=== PATIENT | male | born 1995 | race Caucasian/White ===

== ENCOUNTER 2023-09-08 22:38 | Emergency (ER) | payer BC, SELFPAY ==
[2023-09-08 22:47] VITALS: BP 145/85; PULSE 100; RESP 20; TEMP 36.7; O2SAT 98; BMI 22.2
== END 2023-09-08 23:20 | disposition left against medical advice (07) ==
DX: Z53.21 Procedure and treatment not carried out due to patient leaving prior to being seen by health care provider (principal)

== ENCOUNTER 2024-03-13 12:28 | Outpatient (CLI) | payer BC, SELFPAY | END 2024-03-13 12:29 | disposition home or self-care (01) | PROVIDERS: Visit Provider Family Medicine | DX: R11.0 Nausea (principal); R19.7 Diarrhea, unspecified | CPT/HCPCS: 80053; 83690 ==

== ENCOUNTER 2024-03-18 13:23 | Emergency (ER) | payer BC, SELFPAY ==
[2024-03-18 13:32] VITALS: BP 120/60; PULSE 67; RESP 16; TEMP 36.9; O2SAT 98
--- NOTE | 2024-03-18 13:55 | ED_ITS ---
HPI - General Adult General Time Seen by Provider: 13:55 Date Seen: 03/18/24 Chief complaint: Nausea/Vomiting Stated complaint: Nausea, vomiting, dizziness Time Seen by Provider: 03/18/24 13:44 Source: patient, family (Patient is here with his dad) and RN notes reviewed Mode of arrival: ambulatory Limitations: no limitations History of Present Illness HPI narrative: José Miguel is a 28-year-old male coming into the ER with ongoing nausea and abdominal pain. Symptoms started after March 03. He ate out with his mom, had some crab did of, cheese cake. Symptoms started the next day. He actually left work because he was having nausea and abdominal pain. He has had a couple episodes of diarrhea through this. There was a time where he had some improvement in symptoms and then rebounded. I have reviewed both of his urgent care notes from March 11 as well as March 13. He has noted no fevers. He did note some darkening of his stools when taking the omeprazole. He stop the omeprazole yesterday thinking that it was worsening his abdominal symptoms. He has noted no blood in the stools. There is no family history of inflammatory bowel, dad does have more irritable bowel symptoms. He has felt dizzy with his symptoms. He has been intermittently eating and drinking fine. He thought he would be going back to work today but when he got up this morning he had significant nausea and dizziness again. He does not use any marijuana or THC products, works for [employer]. He had labs at urgent care on March 13, his hemoglobin was 12 and MCV was low at 77. He had a normal lipase and comprehensive metabolic panel, negative COVID. Related Data Home Medications ?Medication ?Instructions ?Recorded ?Confirmed hydrocortisone 2.5 % topical cream applic topical 03/11/24 03/16/24 tacrolimus 0.1 % topical ointment topical DAILY 03/11/24 03/16/24 Previous Rx's ?Medication ?Instructions ?Recorded omeprazole 20 mg capsule,delayed 20 mg PO QDAY #30 caps 03/13/24 release ondansetron 4 mg disintegrating 4 mg PO Q6-8H PRN nausea and 03/13/24 tablet vomiting #10 tabs lansoprazole 30 mg capsule,delayed 30 mg PO DAILY #30 caps 03/18/24 release (Prevacid) ondansetron 4 mg disintegrating 4 mg PO Q6H PRN nausea and 03/18/24 tablet vomiting #20 tabs Allergies Allergy/AdvReac Type Severity Reaction Status Date / Time No Known Drug Allergies Allergy Verified 03/18/24 14:31 Review of Systems Status of ROS: Reports: 6 or more systems reviewed and unremarkable except as noted in History and below [facility] Medical History Microcytic anemia ?D50.9 - Iron deficiency anemia, unspecified (ICD-10) Diarrhea ?R19.7 - Diarrhea, unspecified (ICD-10) Nausea ?R11.0 - Nausea (ICD-10) No significant past medical history Fracture of proximal end of right humerus (05/27/10) ?S42.201A - Unspecified fracture of upper end of right humerus, initial encounter for closed fracture (ICD-10) Family History Father Asthma Other Coronary artery disease Social History Narrative: does not drink alcohol does not ilicit drugs nonsmoker Smoking Status: Never smoker Second hand tobacco smoke exposure: No How often do you have a drink containing alcohol: never How often do you have six or more drinks on one occasion: Never AUDIT-C Alcohol total score: 0 Non-prescribed substance use: denies use Exam Const: Vital Signs, click to edit/add: Vital Signs - 24 hr 03/18/24 13:32 Temperature 98.5 F Pulse Rate [Radial ] 67 Respiratory Rate 16 Blood Pressure [Ri ght Upper Arm] 120/60 Pulse Oximetry 98 Oxygen Delivery Me thod Room Air José Miguel is a 28-year-old male seen in exam room 6. He is alert, interactive, no apparent distress. He is of slender frame. Pupils are equal round, conjugate gaze, sclera clear. Able to speak in complete sentences. Neck slender, no adenopathy or masses. He is able to sit up without difficulty, lungs are clear, good air entry, no wheezing or crackles. No visible abnormalities on inspection of his back. CV regular rate and rhythm, no murmur, normal S1-S2, no S3-S4. Abdomen is flat, thin, nontender, no organomegaly, normal bowel sounds. Documenting provider has reviewed patient's vital signs: yes Course Course ED Course: This 28-year-old male is presenting with over 2 week history of abdominal pain and nausea. He is unlikely to have ?food poisoning? as we discussed. He really has had minimal diarrhea through this. I do think upper abdominal pathology which could include gastritis, ulcer disease, either of these entities complicated by H pylori, small bowel pathology which could be inflammatory bowel disease or celiac disease. Will proceed with repeat labs, give him a L of IV f luids, 4 mg IV Zofran. We will proceed with CT imaging of his abdomen pelvis. Have discussed with him that he may ultimately need to have endoscopy done but not likely needed emergently. Reevaluation(s) Time of Reevaluation #1: 16:02 Reevaluation #1: Have reviewed the CT report and provided them a copy. There is nothing on the CT indicating acute intra-abdominal abnormality. Inflammatory markers are normal, making inflammatory bowel disease much less likely; coupled with normal bowel on CT, I doubt that this is any representation of initial inflammatory bowel disorder. Do still think he should follow up in clinic, have H pylori testing and consideration of celiac testing done. I have reviewed with them that he has iron studies that are pending, if he is confirmed iron deficiency anemia, would at least start with an EGD, may need to consider colonoscopy screening as well. Patient's grandparents tolerated Prevacid and both had significant side effects with omeprazole. José Miguel notes that he just was miserable and had most of the side effects on omeprazole. Will send in Prevacid instead, do think we should do this. Time of Reevaluation #2: 16:17 Reevaluation #2: Iron panel is back in he indeed is iron deficient. Did review this with them. They follow in [facility] within our system. I will order EGD for them here. Given his age, will not order colonoscopy right away but may need to be considered if this does not reveal the source. I will see if we have blood work to do a lab add on for celiac panel but they will need to get the results from his primary. Vital Signs Vital signs: Initial Vital Signs Temperature 98.5 F 03/18/24 13:32 Temperature Source Temporal Artery Scan 03/18/24 13:32 Pulse Rate 67 03/18/24 13:32 Pulse Rhythm Regular 03/18/24 13:32 Respiratory Rate 16 03/18/24 13:32 Blood Pressure 120/60 03/18/24 13:32 Blood Pressure Mean 80 03/18/24 13:32 Pulse Oximetry 98 03/18/24 13:32 Oxygen Delivery Method Room Air 03/18/24 13:32 Vital Signs Temperature 98.5 F 03/18/24 13:32 Pulse Rate 67 03/18/24 13:32 Respiratory Rate 16 03/18/24 13:32 Blood Pressure 120/60 03/18/24 13:32 Pulse Oximetry 98 03/18/24 13:32 Oxygen Delivery Method Room Air 03/18/24 13:32 Temperature 98.5 F 03/18/24 13:32 Pulse Rate 67 03/18/24 13:32 Respiratory Rate 16 03/18/24 13:32 Blood Pressure 120/60 03/18/24 13:32 Pulse Oximetry 98 03/18/24 13:32 Oxygen Delivery Method Room Air 03/18/24 13:32 Medications Administered Medications: Discontinued Medications Generic Name Dose Route Start Last Admin Trade Name Freq PRN Reason Stop Dose Admin Sodium Chloride 1,000 mls @ 1,000 mls/hr 03/18/24 14:09 03/18/24 15:25 0.9 % Sodium Chloride 1000 Ml IV 03/18/24 15:08 Infused .Q1H LUIS ANTONIO Infusion Sodium Chloride 1,000 mls @ 1,000 mls/hr 03/18/24 15:11 03/18/24 15:30 0.9 % Sodium Chloride 1000 Ml IV 03/18/24 16:10 1,000 mls/hr .Q1H LUIS ANTONIO Administration Medical Decision Making Lab Data Lab results reviewed: Yes I reviewed the patient's lab results Labs: Lab Results 03/18/24 03/18/24 Range/Units 14:19 15:10 WBC 4.68 (4.50-11.00) K/uL RBC 5.09 (4.30-5.90) m/uL Hgb 12.0 L (13.5-17.5) gm/dL Hct 38.7 (37.0-53.0) % MCV 76 L (80-100) fL MCH 24 L (26-34) pg MCHC 31 L (32-36) gm/dL RDW Coeff of Thomas 14.2 (11.5-15.5) % Plt Count 225 (140-440) K/uL Neut % (Auto) 51.3 (42.0-72.0) % Lymph % (Auto) 32.7 (20-44) % [place] % (Auto) 12.8 H (0.0-11.0) % Eos % (Auto) 2.8 (0.0-7.0) % Baso % (Auto) 0.4 (0.0-3.0) % Neut # (Auto) 2.40 (1.7-7.0) K/uL Lymph # (Auto) 1.53 (0.90-2.90) K/uL Oxford # (Auto) 0.60 (0.00-0.90) K/UL Eos # (Auto) 0.13 (0.00-0.50) K/uL Baso # (Auto) 0.02 (0.00-0.30) K/uL Abs Immat Gran (auto) 0.00 (0.00-0.30) K/uL Imm/Tot Granulo (auto) 0.0 % ESR 2 (2-15) mm/hr Absolute Retic 0.05 (0.03-0.08) # Percent Retic 0.9 (0.5-2.0) % Immature Retic Fraction 19.1 H (2.3-13.4) % Retic Hgb Equivalent 29.9 (29.0-35.0) pg Sodium 139 (135-149) mmol/L Potassium 4.0 (3.6-5.1) mmol/L Chloride 104 (96-114) mmol/L Carbon Dioxide 26 (20-32) mmol/L Anion Gap 9 (7-15) mEq/L BUN 13 (5-24) mg/dL Creatinine 1.0 (0.5-1.5) mg/dL Estimated GFR 106 ml/min Glucose 91 (60-115) mg/dL Lactate 0.7 (0.5-1.9) mmol/L Calcium 9.7 (8.4-10.6) mg/dL Iron 40 L (49-181) ug/dL TIBC 401 (261-462) ug/dL % Saturation 10 L (20-50) % Total Bilirubin 1.9 H (0.1-1.5) mg/dL AST 18 (12-35) U/L ALT 12 (4-50) U/L Alkaline Phosphatase 42 (40-150) U/L C-Reactive Protein < 0.5 L (0.5-1.0) mg/dL Total Protein 7.1 (6.0-8.3) g/dL Albumin 4.8 (3.3-5.0) g/dL Lipase 103 (23-300) U/L Lab Acknowledgement Test Added Imaging Data CT scan - abdomen: Attestation: I have reviewed the pertinent imaging results. Radiologist's impression: Patient: JOSÉ MIGUEL HARDING Facility:?[facility] Patient ID:?[id number] Site Patient ID:?[id number]. Site :?[id number] Study:?CT-Abdomen/Pelvis W/ 77CC ISOVUE 370-03/18/2024 2:37:35 PM Ordering Physician:Michelle Vasquez Final Report: INDICATION: Lower abdominal pain TECHNIQUE: Axial images were obtained from the diaphragm to the pubic symphysis. Reformats were obtained in the coronal and sagittal plane. IV Contrast: 77 cc Isovue 370 Oral Contrast: None COMPARISON: None. FINDINGS: Lower chest: Unremarkable. Liver: Unremarkable. Normal in size and attenuation. No masses. Gallbladder and bile ducts: Gallbladder is mildly contracted without focal in flammation. Normal diameter common duct. Spleen: Unremarkable. Normal in size without mass. Pancreas: Unremarkable. No mass or inflammation. Adrenal glands: Unremarkable. No nodules. Kidneys: Unremarkable. No masses, stones, or hydronephrosis. Vasculature: Unremarkable. GI tract: The stomach is unremarkable. No dilated loops of large or small intestine. Unremarkable appendix. Pelvis: Unremarkable. Bones: Unremarkable for age. IMPRESSION: Unremarkable abdomen and pelvis CT. No findings to explain the patient`s pain. Please note that all CT scans at this facility use dose modulation, iterative reconstruction, and/or weight-based dosing when appropriate to reduce radiation dose to as low as reasonably achievable. Dictated by Avni Giles MD @ 03/18/2024 3:10:44 PM (Electronic Signature) Discharge Plan Discharge Clinical Impression: Nausea Abdominal pain Qualifiers: Abdominal location: unspecified location Qualified Code(s): R10.9 - Unspecified abdominal pain Iron deficiency anemia Qualifiers: Iron deficiency anemia type: unspecified iron deficiency Qualified Code(s): D50.9 - Iron deficiency anemia, unspecified Patient Disposition: Home, Self-Care Condition: Stable Instructions: Acute Nausea and Vomiting (ED), Abdominal Pain (ED), Iron Rich Diet (ED), Anemia (ED) Additional Instructions: Need to schedule a follow-up with your primary care provider as soon as possible, preferably early next week. Recommend further H pylori, get celiac results. Do recommend an EGD at least be done. Try the Prevacid, stop the omeprazole. Refill for Zofran is placed. Do think you need to continue with brat diet her for the next couple days, if the Prevacid is helping in your abdominal symptoms are better, do think that you can proceed with advancing your diet back to a normal diet. You should take iron supplements. I have provided a note to be out of work for today and tomorrow. The endoscopy clinic should contact you early next week to get you on the schedule for an EGD. This may take home a week or 2 to get on the schedule. Activity Level: Activity as Tolerated Prescriptions: New lansoprazole [Prevacid] 30 mg capsule,delayed release(DR/EC) 30 mg PO DAILY Qty: 30 0RF ondansetron 4 mg tablet,disintegrating 4 mg PO Q6H PRN (Reason: nausea and vomiting) Qty: 20 0RF No Action hydrocortisone 2.5 % cream topical tacrolimus 0.1 % ointment topical DAILY ondansetron 4 mg tablet,disintegrating 4 mg PO Q6-8H PRN (Reason: nausea and vomiting) Qty: 10 1RF omeprazole 20 mg capsule,delayed release(DR/EC) 20 mg PO QDAY Qty: 30 3RF Follow Up/Referrals: Provider,Not a Local [Primary Care Provider] - Stand Alone Forms: [address] Info Instructions
--- NOTE | 2024-03-18 14:08 | CRLHL7_ITS ---
For Patients: As a result of the Century Cures Act, medical imaging exams and procedure reports are released immediately into your electronic medical record. You may view this report before your referring provider. If you have questions, please contact your health care provider. INDICATION: Lower abdominal pain TECHNIQUE: Axial images were obtained from the diaphragm to the pubic symphysis. Reformats were obtained in the coronal and sagittal plane. IV Contrast: 77 cc Isovue 370 Oral Contrast: None COMPARISON: None. FINDINGS: Lower chest: Unremarkable. Liver: Unremarkable. Normal in size and attenuation. No masses. Gallbladder and bile ducts: Gallbladder is mildly contracted without focal inflammation. Normal diameter common duct. Spleen: Unremarkable. Normal in size without mass. Pancreas: Unremarkable. No mass or inflammation. Adrenal glands: Unremarkable. No nodules. Kidneys: Unremarkable. No masses, stones, or hydronephrosis. Vasculature: Unremarkable. GI tract: The stomach is unremarkable. No dilated loops of large or small intestine. Unremarkable appendix. Pelvis: Unremarkable. Bones: Unremarkable for age. IMPRESSION: Unremarkable abdomen and pelvis CT. No findings to explain the patient`s pain. Please note that all CT scans at this facility use dose modulation, iterative reconstruction, and/or weight-based dosing when appropriate to reduce radiation dose to as low as reasonably achievable. Dictated by Avni Giles MD @ 03/18/2024 3:10:44 PM (Electronically Signed)
[2024-03-18 14:30] LABS: Lactate* 0.7 mmol/L (0.5-1.9)
[2024-03-18 14:32] LABS: Basophils Absolute Auto 0.02 K/uL (0.00-0.30); Basophils Percent Auto 0.4 % (0.0-3.0); Eosinophils Absolute Auto 0.13 K/uL (0.00-0.50); Eosinophils Percent Auto 2.8 % (0.0-7.0); Hematocrit 38.7 % (37.0-53.0); Lymphocytes Absolute Auto 1.53 K/uL (0.90-2.90); Lymphocytes Percent Auto 32.7 % (20-44); Mean Corpuscular HGB Conc 31 gm/dL (32-36); Mean Corpuscular Hemoglobin 24 pg (26-34); Mean Corpuscular Volume 76 fL (80-100); Monocytes Percent Auto 12.8 % (0.0-11.0); Neutrophils Percent Auto 51.3 % (42.0-72.0); Platelet Count* 225 K/uL (140-440); RDW Coefficient of Variation % 14.2 % (11.5-15.5); Red Blood Count 5.09 m/uL (4.30-5.90); White Blood Count* 4.68 K/uL (4.50-11.00)
[2024-03-18 14:36] LABS: Slide Review Reflex No
[2024-03-18 14:48] LABS: Albumin* 4.8 g/dL (3.3-5.0); Chloride* 104 mmol/L (96-114); Sodium* 139 mmol/L (135-149)
[2024-03-18 14:51] LABS: Alanine Aminotransferase* 12 U/L (4-50); Alkaline Phosphatase* 42 U/L (40-150); Anion Gap 9 mEq/L (7-15); Aspartate Amino Transferase* 18 U/L (12-35); Bilirubin Total* 1.9 mg/dL (0.1-1.5); Blood Urea Nitrogen* 13 mg/dL (5-24); Carbon Dioxide* 26 mmol/L (20-32); Estimated Glomerular Filt Rate 106 ml/min; Glucose* 91 mg/dL (60-115); Total Protein* 7.1 g/dL (6.0-8.3)
[2024-03-18 14:52] LABS: Calcium* 9.7 mg/dL (8.4-10.6); Lipase* 103 U/L (23-300)
[2024-03-18] MEDS: 0.9 % SODIUM CHLORIDE 1000 ml 1,000 ML IV ×2 (14:55→15:30)
[2024-03-18 14:56] LABS: C Reactive Protein* < 0.5 mg/dL (0.5-1.0)
[2024-03-18 15:34] LABS: Erythrocyte SedimentationRate* 2 mm/hr (2-15)
[2024-03-18 15:40] LABS: Immature Reticulocyte Fraction 19.1 % (2.3-13.4); Reticulocyte Hemoglobin Equivi 29.9 pg (29.0-35.0); Reticulocyte Percent 0.9 % (0.5-2.0); Reticulocytes Absolute 0.05 # (0.03-0.08)
[2024-03-18 15:48] LABS: Iron* 40 ug/dL (49-181)
[2024-03-18 15:57] LABS: Percent Iron Saturation 10 % (20-50); Total Iron Binding Capacity 401 ug/dL (261-462)
[2024-03-18 16:26] LABS: Ferritin* 7.7 ng/mL (17.9-464.0)
[2024-03-20 22:44] LABS: BILL_GLIADPEPA Y; Gliadin Peptide Ab, IgA <0.72 FLU (0.00-4.99); Tissue Transglutaminase Ab IgA <1.02 FLU (0.00-4.99)
[2024-03-21 16:05] LABS: BILL_GLIADPEPG Y; BILL_TtGG Y; Gliadin Peptide Ab, IgG 1.61 FLU (0.00-4.99); Tissue Transglutaminase Ab IgG <0.82 FLU (0.00-4.99)
== END 2024-03-18 16:45 | disposition home or self-care (01) ==
PROVIDERS: Emergency Provider Family Medicine
DX: R11.0 Nausea (principal); R10.9 Unspecified abdominal pain; D50.9 Iron deficiency anemia, unspecified
CPT/HCPCS: 36415; 74177; 80053; 82728; 83540; 83550; 83605; 83690; 85025; 85045; 85651; 86140; 86231; 86258; 86364; 99284; 99285; J7030; Q9967

== ENCOUNTER 2024-04-28 10:59 | Outpatient (CLI) | payer BC, SELFPAY ==
--- NOTE | 2024-04-28 11:19 | W.ANESCHARGE ---
Anesthesia Charges Start Date/Time Anesthesia Start Date: 04/28/24 Anesthesia Start Time: 11:45 Stop Date/Time Anesthesia Stop Date: 04/28/24 Anesthesia Stop Time: 12:05
--- NOTE | 2024-04-28 12:09 | W.ANESCHARGE ---
Anesthesia Charges Start Date/Time Anesthesia Start Date: 04/28/24 Anesthesia Start Time: 11:45 Stop Date/Time Anesthesia Stop Date: 04/28/24 Anesthesia Stop Time: 12:05
== END 2024-04-28 11:00 | disposition home or self-care (01) ==
LOC: OP CLINIC 10:59
PROVIDERS: Visit Provider Surgery
DX: R13.10 Dysphagia, unspecified (principal); K22.2 Esophageal obstruction
CPT/HCPCS: 00731; 43200; J2704; J3490

== ENCOUNTER 2024-06-02 07:54 | Outpatient (CLI) | payer BC, SELFPAY ==
--- NOTE | 2024-06-02 08:15 | CRLHL7_ITS ---
For Patients: As a result of the Century Cures Act, medical imaging exams and procedure reports are released immediately into your electronic medical record. You may view this report before your referring provider. If you have questions, please contact your health care provider. Technique: Double-contrast upper GI performed after the uneventful administration of effervescent crystals and thick barium followed by thin barium. Fluoroscopy time 2 minutes 47 seconds. Indication: Dysphagia, FAILED ENDOSCOPY. POSSIBLE ULCER Comparison: CT 03/18/2024 Findings: Swallowing mechanism: Normal. Esophageal motility: Normal. Gastroesophageal reflux: None. Hernia: None. Esophagus, stomach and duodenal bulb mucosa: Normal mucosa. No stricture or mass. Impression: Normal double-contrast upper GI. No evidence of ulcer. Dictated by Ish Robledo MD @ 06/06/2024 12:43:34 PM (Electronically Signed)
== END 2024-06-02 07:55 | disposition home or self-care (01) ==
LOC: RAD 07:54
PROVIDERS: Visit Provider Surgery
DX: R13.10 Dysphagia, unspecified (principal)
CPT/HCPCS: 74240; 74246

== ENCOUNTER 2024-06-05 14:35 | Emergency (ER) | payer BC, SELFPAY ==
[2024-06-05 14:49] VITALS: BP 118/73; PULSE 71; RESP 16; TEMP 37.3; O2SAT 99; BMI 20.9
[2024-06-05 16:38] LABS: Basophils Absolute Auto 0.03 K/uL (0.00-0.30); Basophils Percent Auto 0.5 % (0.0-3.0); Eosinophils Absolute Auto 0.25 K/uL (0.00-0.50); Eosinophils Percent Auto 4.5 % (0.0-7.0); Hematocrit 38.9 % (37.0-53.0); Hemoglobin* 12.5 gm/dL (13.5-17.5); Lymphocytes Absolute Auto 1.62 K/uL (0.90-2.90); Lymphocytes Percent Auto 29.2 % (20-44); Mean Corpuscular HGB Conc 32 gm/dL (32-36); Mean Corpuscular Hemoglobin 25 pg (26-34); Mean Corpuscular Volume 78 fL (80-100); Monocytes Percent Auto 10.3 % (0.0-11.0); Neutrophils Absolute Auto 3.08 K/uL (1.7-7.0); Neutrophils Percent Auto 55.5 % (42.0-72.0); Platelet Count* 208 K/uL (140-440); RDW Coefficient of Variation % 14.8 % (11.5-15.5); Red Blood Count 5.01 m/uL (4.30-5.90); White Blood Count* 5.55 K/uL (4.50-11.00)
[2024-06-05 16:41] LABS: Slide Review Reflex No
--- NOTE | 2024-06-05 16:43 | ED.ABDPAIN ---
HPI - Abdominal Pain General Date Seen: 06/05/24 Chief Complaint: Abdominal Pain Stated Complaint: Upper abdominal pain Time Seen by Provider: 06/05/24 16:03 Source: patient Mode of arrival: ambulatory Limitations: no limitations History of Present Illness HPI narrative: Patient is a 28-year-old gentleman, presents here with an episode of food getting caught in his throat, he was eating a pizza, which she has eaten before, felt to get lodged in his throat he is able to drink some fluid, but then threw it all up, and now fluid is able to go down. Was having a little bit of abdominal pain but that has subsequently resolved, he has absolutely no pain a currently, and is drinking fluids well. Denies any blood within his vomitus or any coffee-grounds, they say he may have an ulcer, as his hemoglobin was low. He is not having any bowel movements with either dark bowel movements, or blood in his bowel movements. He just underwent an upper GI follow-through and has not had the results of this given to him yet. They did try to do endoscopy in April, but were unable to complete this, as he had constriction, which they thought was benign. He has not take any NSAIDs, and does not use alcohol. He is on Prevacid which he said works really well and he has not really had any episodes of pain MD elicited complaint: abdominal pain Pertinent past history: none Related Data Home Medications ?Medication ?Instructions ?Recorded ?Confirmed hydrocortisone 2.5 % topical cream applic topical 03/11/24 03/30/24 tacrolimus 0.1 % topical ointment topical DAILY 03/11/24 03/30/24 Previous Rx's ?Medication ?Instructions ?Recorded ondansetron 4 mg disintegrating 4 mg PO Q6-8H PRN nausea and 03/13/24 tablet vomiting #10 tabs lansoprazole 30 mg capsule,delayed 30 mg PO DAILY #30 caps 03/18/24 release (Prevacid) Allergies Allergy/AdvReac Type Severity Reaction Status Date / Time No Known Drug Allergies Allergy Verified 03/30/24 14:17 Review of Systems Status of ROS Reports: 10 or more systems reviewed and unremarkable except as noted in History and below [facility] Medical History Avulsion fracture of metatarsal bone of right foot ?S92.301A - Fracture of unspecified metatarsal bone(s), right foot, initial encounter for closed fracture (ICD-10) Nondisplaced fracture of fifth metatarsal bone ?S92.356A - Nondisplaced fracture of fifth metatarsal bone, unspecified foot, initial encounter for closed fracture (ICD-10) Microcytic anemia ?D50.9 - Iron deficiency anemia, unspecified (ICD-10) Diarrhea ?R19.7 - Diarrhea, unspecified (ICD-10) Nausea ?R11.0 - Nausea (ICD-10) No significant past medical history Fracture of proximal end of right humerus (05/27/10) ?S42.201A - Unspecified fracture of upper end of right humerus, initial encounter for closed fracture (ICD-10) Surgical History No history of previous surgery Family History Father Asthma Paternal Grandfather History of heart artery stent, Onset Age: 75 Maternal Grandmother Diabetes Social History Narrative: Single, works as [employer] , [employer], lives with father no kids Exercises 3 times a week running and weightlifting Nonsmoker lifetime Rare alcohol use No drug use What is your current living situation?: I presently have a place to live Problems where you live: no known problems In the past 12 months, utilities in danger of being shut off: no In past 12 months, lack of transportation kept you from medical appts, meetings, work, or getting things needed for daily living: no In the past 12 mos, have been you worried that your food would run out before you had money to buy more?: never true In the past 12 mos, the food you bought just didn't last and you didn't have money to buy more?: never true Smoking Status: Never smoker Second hand tobacco smoke exposure: No How often do you have a drink containing alcohol: never How often do you have six or more drinks on one occasion: Never AUDIT-C Alcohol total score: 0 Non-prescribed substance use: denies use How often does anyone, including family, friends and others, physically hurt you: never How often does anyone, including family, friends and others, insult or talk down to you: never How often does anyone, including family, friends and others, threaten you with harm: never How often does anyone, including family, friends and others, scream or curse at you: never Little interest or pleasure in doing things: not at all Feeling down, depressed, or hopeless: not at all Exam Narrative: Exam Narrative: On examination he is pleasant alert he is in no distress, he is a bit pale but this may be is normal call color, conjunctivae well perfused oropharynx is normal neck is supple, chest is clear bilaterally no wheezing crackles noted heart sounds no clicks murmurs or gallops abdomen is scaphoid there is no guarding, no tenderness normal bowel sound no tenderness anywhere on palpation, skin reveals no petechiae rashes. Const: Vital Signs, click to edit/add: Vital Signs - 24 hr 06/05/24 14:49 Temperature 99.1 F Pulse Rate [Right Pulse Oximeter] 71 Respiratory Rate 16 Blood Pressure [Ri ght Upper Arm] 118/73 Pulse Oximetry 99 Oxygen Delivery Me thod Room Air Course Vital Signs Vital signs: Initial Vital Signs Temperature 99.1 F 06/05/24 14:49 Temperature Source Temporal Artery Scan 06/05/24 14:49 Pulse Rate 71 06/05/24 14:49 Pulse Rhythm Regular 06/05/24 14:49 Pulse Strength 3+ Normal 06/05/24 14:49 Respiratory Rate 16 06/05/24 14:49 Blood Pressure 118/73 06/05/24 14:49 Blood Pressure Mean 88 06/05/24 14:49 Blood Pressure Position Sitting 06/05/24 14:49 Pulse Oximetry 99 06/05/24 14:49 Oxygen Delivery Method Room Air 06/05/24 14:49 Vital Signs Temperature 99.1 F 06/05/24 14:49 Pulse Rate 71 06/05/24 14:49 Respiratory Rate 16 06/05/24 14:49 Blood Pressure 118/73 06/05/24 14:49 Pulse Oximetry 99 06/05/24 14:49 Oxygen Delivery Method Room Air 06/05/24 14:49 Temperature 99.1 F 06/05/24 14:49 Pulse Rate 71 06/05/24 14:49 Respiratory Rate 16 06/05/24 14:49 Blood Pressure 118/73 06/05/24 14:49 Pulse Oximetry 99 06/05/24 14:49 Oxygen Delivery Method Room Air 06/05/24 14:49 MDM - Abdominal Pain MDM Narrative Medical decision making narrative: I discussed with him, clearly he has no pain currently so I really do not think he has an ulcer. Released and also that is active, may be in the healing phase I do think that we could just do a hemoglobin here and see where he is at. He will get the results from his physician from the barium swallow, he likely will need to see GI, he may have chronic reflux, which is called this causes a stricture. No evidence of acute or chronic GI bleeding here today. In the nontoxic stable gentleman I discussed with him that this is excellent news, recommend full liquid diet, follow-up based on the results of your test, continue with your medication Medical Records Attestation: I reviewed the patient's medical records. Lab Data Attestation: I reviewed the patient's lab results. Lab results narrative: Hemoglobin increase 0.5 from recent 12. Still microcytic indices Labs: Lab Results 06/05/24 Range/Units 16:30 WBC 5.55 (4.50-11.00) K/uL RBC 5.01 (4.30-5.90) m/uL Hgb 12.5 L (13.5-17.5) gm/dL Hct 38.9 (37.0-53.0) % MCV 78 L (80-100) fL MCH 25 L (26-34) pg MCHC 32 (32-36) gm/dL RDW Coeff of Thomas 14.8 (11.5-15.5) % Plt Count 208 (140-440) K/uL Neut % (Auto) 55.5 (42.0-72.0) % Lymph % (Auto) 29.2 (20-44) % [place] % (Auto) 10.3 (0.0-11.0) % Eos % (Auto) 4.5 (0.0-7.0) % Baso % (Auto) 0.5 (0.0-3.0) % Neut # (Auto) 3.08 (1.7-7.0) K/uL Lymph # (Auto) 1.62 (0.90-2.90) K/uL [place] # (Auto) 0.60 (0.00-0.90) K/UL Eos # (Auto) 0.25 (0.00-0.50) K/uL Baso # (Auto) 0.03 (0.00-0.30) K/uL Abs Immat Gran (auto) 0.00 (0.00-0.30) K/uL Imm/Tot Granulo (auto) 0.0 % Discharge Plan Discharge Clinical Impression: Food sticks on swallowing, Microcytic anemia, Abdominal pain, History of esophageal stricture Patient Disposition: Home, Self-Care Condition: Stable Instructions: Abdominal Pain (ED), Full Liquid Diet (DC) Additional Instructions: Your hemoglobin is increased by 0.5, which is excellent, I do not see any evidence of bleeding, I do think you had an episode where the food got stuck, I would recommend a full liquid diet at this point. It least until you get the follow-up with your recent test that you had. Return here if the food gets stuck, which is should know if your on the liquid diet. Continue to take your Prevacid Prescriptions: No Action hydrocortisone 2.5 % cream topical tacrolimus 0.1 % ointment topical DAILY ondansetron 4 mg tablet,disintegrating 4 mg PO Q6-8H PRN (Reason: nausea and vomiting) Qty: 10 1RF lansoprazole [Prevacid] 30 mg capsule,delayed release(DR/EC) 30 mg PO DAILY Qty: 30 0RF Follow Up/Referrals: Provider,Not a Local [Primary Care Provider] - Stand Alone Forms: [employer] [facility] Info Instructions
== END 2024-06-05 17:09 | disposition home or self-care (01) ==
PROVIDERS: Emergency Provider Family Medicine
DX: R13.10 Dysphagia, unspecified (principal); D50.9 Iron deficiency anemia, unspecified; R10.9 Unspecified abdominal pain
CPT/HCPCS: 36415; 85025; 99283; 99284

== ENCOUNTER 2024-11-16 12:31 | Emergency (ER) | payer BC, SELFPAY ==
--- OUTSIDE RECORDS SUMMARY | 2024-11-16 12:33 | XMS_ITS | Clinical Summary ---
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 PCP - General 12/25/14
[2024-11-16 13:15] VITALS: BP 119/75; PULSE 72; RESP 16; TEMP 36.6; O2SAT 97; BMI 19.5
--- NOTE | 2024-11-16 14:00 | ED_ITS ---
HPI - General Adult General Chief complaint: Abdominal Pain Stated complaint: Abdominal pain Time Seen by Provider: 11/16/24 12:34 History of Present Illness HPI narrative: 29-year-old male who has had chronic abdominal pain. He has had esophageal dilatation he has had EGD twice within the last couple of months. He has had a CT scan within a year that was unremarkable of his abdomen. He was diagnosed at 1 time with eosinophilic esophagitis but again his last EGD look fairly clear biopsies were clear. He is on Prevacid 30 mg twice a day. He has follow-up with his GI doctor. He has had laboratory studies done. He has had no new complaint of pain but intermittently he will get pain primarily in the morning. No other specific complaints. He would does report that he is well lost some weight. Related Data Home Medications ?Medication ?Instructions ?Recorded ?Confirmed tacrolimus 0.1 % topical ointment topical DAILY 03/11/24 10/17/24 fluoxetine 20 mg capsule 20 mg PO QAM 11/16/24 11/16/24 hydroxyzine HCl 10 mg tablet 10 - 20 mg PO PRN panic attack 11/16/24 Previous Rx's ?Medication ?Instructions ?Recorded ondansetron 4 mg disintegrating 4 mg PO Q6-8H PRN nausea and 03/13/24 tablet vomiting #10 tabs lansoprazole 30 mg capsule,delayed 30 mg PO DAILY #30 caps 03/18/24 release (Prevacid) Allergies Allergy/AdvReac Type Severity Reaction Status Date / Time No Known Drug Allergies Allergy Verified 11/16/24 13:14 Review of Systems Status of ROS: Reports: 6 or more systems reviewed and unremarkable except as noted in History and below Narrative: Patient does struggle with anxiety depression, has started Prozac within the last week and think that might be helping a little. [facility] Medical History Avulsion fracture of metatarsal bone of right foot ?S92.301A - Fracture of unspecified metatarsal bone(s), right foot, initial encounter for closed fracture (ICD-10) Nondisplaced fracture of fifth metatarsal bone ?S92.356A - Nondisplaced fracture of fifth metatarsal bone, unspecified foot, initial encounter for closed fracture (ICD-10) Microcytic anemia ?D50.9 - Iron deficiency anemia, unspecified (ICD-10) Fracture of proximal end of right humerus (05/27/10) ?S42.201A - Unspecified fracture of upper end of right humerus, initial encounter for closed fracture (ICD-10) Surgical History History of esophagogastroduodenoscopy (EGD) ?Z98.890 - Other specified postprocedural states (ICD-10) Family History Father Asthma Paternal Grandfather History of heart artery stent, Onset Age: 75 Maternal Grandmother Diabetes Social History Narrative: Single, works as [employer] , [employer], lives with father no kids Exercises 3 times a week running and weightlifting Nonsmoker lifetime Rare alcohol use No drug use What is your current living situation?: I presently have a place to live Problems where you live: no known problems In the past 12 months, utilities in danger of being shut off: no In past 12 months, lack of transportation kept you from medical appts, meetings, work, or getting things needed for daily living: no In the past 12 mos, have been you worried that your food would run out before you had money to buy more?: never true In the past 12 mos, the food you bought just didn't last and you didn't have money to buy more?: never true Smoking Status: Never smoker Second hand tobacco smoke exposure: No How often do you have a drink containing alcohol: never How often do you have six or more drinks on one occasion: Never AUDIT-C Alcohol total score: 0 Non-prescribed substance use: denies use How often does anyone, including family, friends and others, physically hurt you : never How often does anyone, including family, friends and others, insult or talk down to you: never How often does anyone, including family, friends and others, threaten you with harm: never How often does anyone, including family, friends and others, scream or curse at you: never Exam Narrative: Exam Narrative: Objective: Vital signs are within normal limits in general the patient is in no apparent distress he is tall thin man, he is very focused on his GI issues. He has primarily affected in the morning. HEENT is unremarkable no scleral icterus mouth clear neck is supple abdomen is soft no masses no peritonitis no right upper quadrant her lower right lower quadrant pain. Extremities show full neurologic function he has no limitations in motion. Const: Vital Signs, click to edit/add: Vital Signs - 24 hr 11/16/24 13:15 11/16/24 14:13 Temperature 97.8 F 97.8 F Pulse Rate [Pulse Oximeter] 72 72 Respiratory Rate 16 16 Blood Pressure [Ri ght Upper Arm] 119/75 119/75 Pulse Oximetry 97 Oxygen Delivery Me thod Room Air Course Vital Signs Vital signs: Initial Vital Signs Temperature 97.8 F 11/16/24 13:15 Temperature Source Oral 11/16/24 13:15 Pulse Rate 72 11/16/24 13:15 Respiratory Rate 16 11/16/24 13:15 Blood Pressure 119/75 11/16/24 13:15 Blood Pressure Mean 89 11/16/24 13:15 Blood Pressure Position Sitting 11/16/24 13:15 Pulse Oximetry 97 11/16/24 13:15 Oxygen Delivery Method Room Air 11/16/24 13:15 Vital Signs Temperature 97.8 F 11/16/24 13:15 Pulse Rate 72 11/16/24 13:15 Respiratory Rate 16 11/16/24 13:15 Blood Pressure 119/75 11/16/24 13:15 Pulse Oximetry 97 11/16/24 13:15 Oxygen Delivery Method Room Air 11/16/24 13:15 Temperature 97.8 F 11/16/24 14:13 Pulse Rate 72 11/16/24 14:13 Respiratory Rate 16 11/16/24 14:13 Blood Pressure 119/75 11/16/24 14:13 Pulse Oximetry 97 11/16/24 13:15 Oxygen Delivery Method Room Air 11/16/24 13:15 Medical Decision Making MDM Narrative Medical decision making narrative: [age] year white male with chronic abdominal pain. Patient has had EGD, esophageal dilatation, diagnosis of esophageal eosinophilic esophagitis. He has had CT scan, and EGD twice as mention. At this point he is scheduled with his GI doctor to follow up and also get a repeat CT scan. I think he should proceed with that. At this time I do not perceive that any blood testing or other concerns would be indicated at this time. Given his symptoms are primarily in the morning however I would do elevation of the head of his bed in case he gets some nocturnal reflux. He should elevate the head of his bed . He should avoid eating before an hour 2 before bed. Continue his same medications except would stop using Tums and. Vitamin-C that he is taking quite a bit of. Have him follow up with regular doctor as above. I would recommend also he have a week off work as that may help his anxiety stress. And see if that would help alleviate his symptoms. Follow up with his regular doctor as indicated. He can return as needed. Discharge Plan Discharge Clinical Impression: Abdominal pain, chronic, epigastric Patient Disposition: Home w/ Parent or Adult Condition: Stable Additional Instructions: And light diet, discontinue Tums and just use the proton pump inhibitor, follow- up with the CT scan is scheduled by her GI doctor. Would stop using vitamin-C drops as well. Continue to monitor your her fluoxetine use and make sure that anxiety and depression are well treated. No written for off work for the next week. Activity Level: Light activity Discharge Diet: Low Fat/Low Cholesterol Prescriptions: No Action tacrolimus 0.1 % ointment topical DAILY ondansetron 4 mg tablet,disintegrating 4 mg PO Q6-8H PRN (Reason: nausea and vomiting) Qty: 10 1RF lansoprazole [Prevacid] 30 mg capsule,delayed release(DR/EC) 30 mg PO DAILY Qty: 30 0RF hydroxyzine HCl 10 mg tablet 10 - 20 mg PO PRN (Reason: panic attack) fluoxetine 20 mg capsule 20 mg PO QAM Follow Up/Referrals: Provider,Not a Local [Primary Care Provider] - Stand Alone Forms: [employer] Info Instructions
--- OUTSIDE RECORDS SUMMARY | 2024-11-16 14:11 | XMS_ITS | Clinical Summary ---
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 PCP - General 12/25/14
[2024-11-16 14:13] VITALS: BP 119/75; PULSE 72; RESP 16; TEMP 36.6
== END 2024-11-16 14:14 | disposition home or self-care (01) ==
LOC: ED 14:09
PROVIDERS: Emergency Provider Family Medicine
DX: R10.13 Epigastric pain (principal); G89.29 Other chronic pain
CPT/HCPCS: 99282; 99283; 99284

== ENCOUNTER 2024-12-27 08:32 | Outpatient (CLI) | payer BC, SELFPAY | END 2024-12-27 08:33 | disposition home or self-care (01) | LOC: NFLDREF 01-03 23:50 | PROVIDERS: Visit Provider Physician Assistant | DX: R19.7 Diarrhea, unspecified (principal) | CPT/HCPCS: 87045; 87046; 87427; 87493; 87505 ==

== ENCOUNTER 2024-12-29 13:50 | Outpatient (CLI) | payer BC, SELFPAY ==
--- NOTE | 2024-12-29 14:00 | CRLHL7_ITS ---
For Patients: As a result of the Century Cures Act, medical imaging exams and procedure reports are released immediately into your electronic medical record. You may view this report before your referring provider. If you have questions, please contact your health care provider. Indication: epigastric abdominal pain Technique: CT Abdomen/Pelvis W/ ISOVUE 370 intravenous contrast Please note that all CT scans at this facility use dose modulation, iterative reconstruction, and/or weight-based dosing when appropriate to reduce radiation dose to as low as reasonably achievable. Comparison: 03/18/2024 Findings: Lung bases are clear. Normal liver. Incidental focal fat deposition adjacent to the falciform ligament. The gallbladder is incompletely distended, similar to the prior study. No biliary obstruction. No calcified gallstones. Normal pancreas and spleen. Normal adrenal glands and kidneys. No free air, free fluid, abscess or adenopathy. Normal prostate and bladder. No bowel obstruction. Normal appendix. Normal osseous structures. Impression: Incompletely distended gallbladder, chronic. This could suggest biliary dyskinesia. Ultrasound is suggested for further evaluation. Remainder unremarkable. Please note that all CT scans at this facility use dose modulation, iterative reconstruction, and/or weight-based dosing when appropriate to reduce radiation dose to as low as reasonably achievable. Dictated by Ish Robledo MD @ 12/30/2024 12:51:16 PM (Electronically Signed)
== END 2024-12-29 13:51 | disposition home or self-care (01) ==
PROVIDERS: Visit Provider Internal Medicine
DX: R10.13 Epigastric pain (principal)
CPT/HCPCS: 74177; Q9967